=== PATIENT | female | born 1990 | race Caucasian/White ===

== ENCOUNTER → 2017-07-03 | Outpatient (CLI) | payer OTHER ==
[~2017-07-03] MED LIST: PRENTAB26 PO
[2017-07-03 16:15] LABS: HEMATOCRIT 38.3 % (37-47); HEMOGLOBIN 13.3 g/dL (12.0-16.0)
== END | disposition home or self-care (01) ==
LOC: C.LAB1850 14:19
PROVIDERS: ATTEND Obstetrics & Gynecology
DX: Z34.83 Encounter for supervision of other normal pregnancy, third trimester (principal)

== ENCOUNTER → 2017-07-19 | Outpatient (CLI) | payer OTHER | END | disposition home or self-care (01) | LOC: C.LAB1850 08:58 | PROVIDERS: ATTEND Obstetrics & Gynecology | DX: O28.1 Abnormal biochemical finding on antenatal screening of mother (principal); Z3A.00 Weeks of gestation of pregnancy not specified ==

== ENCOUNTER → 2017-09-07 | Outpatient (CLI) | payer OTHER | END | disposition home or self-care (01) | LOC: C.LABSPEC 17:14 | PROVIDERS: ATTEND Obstetrics & Gynecology | DX: Z34.83 Encounter for supervision of other normal pregnancy, third trimester (principal) ==

== ENCOUNTER 2017-09-30 13:21 | Inpatient (IN) | payer OTHER ==
[~2017-09-30] VITALS: Ht 162.6 cm; Wt 82.0 kg
[2017-09-30 14:55] VITALS: Ht 162.6 cm; Wt 82.0 kg
[2017-09-30] MEDS ORDERED: LACTATED RINGER'S 1000ML 1,000 ML IV SCH (16:33)
[2017-09-30] MEDS ORDERED: LACTATED RINGER'S 1000ML 1,000 ML IV PRN (16:33)
[2017-09-30 17:14] LABS: HEMATOCRIT 40.3 % (37-47); HEMOGLOBIN 13.8 g/dL (12.0-16.0); MEAN CELL VOLUME 86.5 fL (80-100); MEAN CORPUSCULAR HEMOGLOBIN 29.6 pg (25-34); MEAN CORPUSCULAR HGB CONC 34.2 g/dl (32-36); MEAN PLATELET VOLUME 11.1 fL (7.4-10.4); PLATELET COUNT 167 K/uL (130-400); RED CELL DISTRIBUTION WIDTH CV 13.8 % (11.5-14.5); RED CELL DISTRIBUTION WIDTH SD 42.6 fL (36.4-46.3); WHITE BLOOD COUNT 13.18 K/uL (4.8-10.8)
[2017-09-30] MEDS ORDERED: BUPIVACAINE 0.25% 30 ML VIAL ONE (17:36)
[2017-09-30] MEDS ORDERED: FENTANYL 2MCG/ML ROPIV 1.25MG/ML 100ML BAG EPI ONE (17:36)
[2017-09-30] MEDS ORDERED: EpHEDrine SULFATE INJ 50 MG/ML AMP ONE (17:36)
[2017-09-30] MEDS ORDERED: FENTANYL CITRATE INJ 50 MCG/1 ML 2 ML VIAL ONE (17:36)
[2017-09-30] MEDS ORDERED: OXYTOCIN 30 UNITS/500ML NSS IV ONE (18:49)
[2017-09-30] MEDS ORDERED: NALOXONE HCL INJ 1 MG in SODIUM CHLORIDE 0.9% 1000ML 1,000 ML IV PRN (19:13)
[2017-09-30] MEDS ORDERED: LACTATED RINGER'S 1000ML 500 ML IV PRN (19:13)
[2017-09-30] MEDS ORDERED: ONDANSETRON INJ 2 MG/ML 2 ML VIAL IV PRN (19:15)
[2017-09-30] MEDS ORDERED: NALBUPHINE HCL INJ 10 MG/ML AMP IV PRN (19:15)
[2017-09-30] MEDS ORDERED: FENTANYL 2MCG/ML ROPIV 1.25MG/ML 100ML BAG EPI PRN (19:15)
[2017-09-30] MEDS ORDERED: DiphenhydrAMINE HCL 50 MG/ML VIAL IV PRN (19:15)
[2017-09-30] MEDS ORDERED: EpHEDrine SULFATE INJ 50 MG/ML AMP IV PRN (19:15)
[2017-09-30] MEDS ORDERED: NALOXONE HCL INJ 0.4 MG/1 ML VIAL/CARP IV PRN (19:15)
[2017-09-30] MEDS ORDERED: BENZOCAINE 20% AER SPR 82.5 GM CAN EXT PRN (21:15)
[2017-09-30] MEDS ORDERED: SUPERCREAM 0.870 % 15GM JAR EXT PRN (21:15)
[2017-09-30] MEDS ORDERED: HYDROCORTISONE ACETATE 25 MG SUPP PR PRN (21:15)
[2017-09-30] MEDS ORDERED: ACETAMINOPHEN 325 MG TAB PO PRN (21:15)
[2017-09-30] MEDS ORDERED: LANOLIN OINT EXT PRN (21:15)
[2017-09-30] MEDS ORDERED: OXYCODONE/ACETAMINOPHEN 5-325 TAB PO PRN (21:15)
[2017-09-30] MEDS ORDERED: DIPHTHERIA/TETANUS/PERTUSSIS 0.5 ML SYR/VIAL IM. ONE (21:15)
[2017-09-30] MEDS ORDERED: OXYTOCIN 30 UNITS/500ML NSS IV PRN (21:15)
[2017-09-30] MEDS ORDERED: ACETAMINOPHEN/CODEINE 300/30MG TAB PO PRN ×2 (21:15)
--- NOTE | 2017-09-30 21:23 | DELIVERY SUMMARY ---
DATE OF OPERATION: 09/30/2017 VAGINAL DELIVERY NOTE Josey presented in active labor on 09/30/2017. This is her third baby. Group B step negative. Term , uncomplicated. She was 5 cm requested epidural. ARM was performed and then she rapidly progressed to fully dilation. She delivered a baby in right occiput anterior position, fluid was clear. However, there was a tight nuchal cord. This was clamped and cut after delivery of the head and mouth and nares suctioned. Gentle traction used to deliver the baby. No excessive force, live vigorous male infant. Cord gas was obtained. Cord blood obtained. Placenta removed with gentle traction. A small first degree tear repaired with 3-0 Vicryl. Estimated blood loss 100 mL. Sponge and instrument counts were correct. I attest to the content of the Intraoperative Record and any orders documented therein. Any exception s are noted below.
[2017-09-30 23:20] VITALS: BP 112/63; PULSE 88; TEMP 36.7; O2SAT 96
[2017-09-30] MEDS: IBUPROFEN 600 MG TAB PO PRN (23:57)
--- NOTE | 2017-10-01 00:07 | Anesthesia Procedure Note ---
Anesthesia Epidural Removal Nt Date & Time Oct 01, 2017 at 00:06 Vital Signs Pain Intensity: 2.0 Vital Signs Past 12 Hours Date Time Temp Pulse Resp B/P (MAP) Pulse Ox O2 Delivery O2 Flow Rate FiO2 09/30/17 23:20 Room Air 09/30/17 23:20 36.7 88 16 112/63 (79) 96 Room Air Notes Mental Status: alert / awake / arousable, participated in evaluation Nausea / Vomiting: adequately controlled Pain: adequately controlled Airway Patency, RR, SpO2: stable & adequate BP & HR: stable & adequate Hydration State: stable & adequate Neuraxial Anesthesia: was administered Anesthetic Complications: no major complications apparent, pt satisfied with anesthetic care Epidural: removed without complications, with tip intact
[2017-10-01 03:15] VITALS: BP 100/58; PULSE 77; TEMP 36.6; O2SAT 95
--- NOTE | 2017-10-01 06:34 | Progress Note ---
Subjective Oct 01, 2017. Subjective conversation w/ patient, physical exam, chart review, lab review Ambulation: ambulating normally Voiding: no voiding problems Passing Gas: Yes Diet Tolerance: Regular Diet Lochia: Small Feeding Type: Breast Feeding Review of Systems Constitutional: No fever, No chills Respiratory: No cough, No shortness of breath Cardiac: No chest pain, No palpitations Abdomen: No pain, No nausea, No vomiting Female : No dysuria Objective Vital Signs Date Time Temp Pulse Resp B/P (MAP) Pulse Ox O2 Delivery O2 Flow Rate FiO2 10/01/17 03:15 36.6 77 16 100/58 (72) 95 Room Air 09/30/17 23:20 Room Air 09/30/17 23:20 36.7 88 16 112/63 (79) 96 Room Air Physical Exam General Appearance: WELL-APPEARING, WD/WN, NO APPARENT DISTRESS Respiratory/Chest: lungs clear, no respiratory distress Cardiovascular: regular rate, rhythm, no murmur Abdomen: non tender, soft Fundus: Firm, Relation to Umbilicus (1cm above the u) Extremities: non-tender, normal inspection Laboratory Results Last 24 Hours Test 09/30/17 16:53 10/01/17 04:44 White Blood Count 13.18 K/uL Red Blood Count 4.66 M/uL Hemoglobin 13.8 g/dL Hematocrit 40.3 % Mean Corpuscular Volume 86.5 fL Mean Corpuscular Hemoglobin 29.6 pg Mean Corpuscular Hemoglobin Concent 34.2 g/dl RDW Standard Deviation 42.6 fL RDW Coefficient of Variation 13.8 % Platelet Count 167 K/uL Mean Platelet Volume 11.1 fL Assessment and Plan Post- Day#: 1 Continue Routine Care: 27 yo female, , GBS-/B+/RI, PPD1. Reviewed vitals, WNL. Hgb 13.8 on admission, pending this am. No signs or sx of anemia. Pt is doing well clinically. Plan; 1. Recovery from vaginal delivery; Cont. pp care--ambulate, support bf, control pain, monitor lochia Resident Physician Supervision Note: I was present with Dr. Ibrahim during the history and exam. I discussed the case with the resident and agree with the findings and plan as documented in the note. Any exceptions or clarifications are listed here: [None] Documented By: Micah Martin
--- NOTE | 2017-10-01 06:35 | Discharge Instructions ---
Discharge Instructions Date of Service Oct 01, 2017. Admission Reason for Admission: Check Labor Discharge Discharge Diagnosis / Problem: vaginal delivery Discharge Goals Goal(s): Routine recovery after delivery Medications Continue Dispensed Medications: supercream, dermaplast, tucks, lansinoh Activity Recommendations Activity Limitations: per Instructions/Follow-up section . Instructions / Follow-Up Instructions / Follow-Up ACTIVITY RECOMMENDATIONS: * Gradual return to full activity over the next 2-3 weeks. * No lifting - nothing heavier than baby over the next 2-3 weeks. * Do not engage in vigorous exercise, sexual activity or sports until cleared by your physician. * Do not drive or operate any motorized equipment until cleared by your physician. * You may shower/bathe daily. MEDICATIONS: For discomfort or pain, you may use Acetaminophen (Tylenol), Ibuprofen (Advil), or Naproxen (Aleve) following the package directions. For constipation you may use Colace following the package directions. BREAST CARE: If you are not breast feeding: * Wear a supportive bra 24 hours a day for one to two weeks. * Avoid stimulating your breasts and nipples as much as possible during the first few weeks after delivery. * When taking a shower, have the warm water hit your back, not breasts. * When your breasts feel full, apply ice packs. Usually three to four times a day helps ease the discomfort. * Take a mild pain medication (Tylenol / Motrin) when you are uncomfortable. If breast feeding: * Use breast milk to lubricate nipples. Lansinoh cream may be used for sore nipples. You do not need to remove cream prior to breast feeding. If using a different brand of cream, check the label for directions regarding removal of cream prior to nursing. * Wear a supportive bra. * If having problems with breasts or breast feeding, call a internal control consultant or your health care provider. EPISIOTOMY CARE: After delivery, if you have an episiotomy (stitches), the following steps will ease discomfort and aid healing. * For the first 24 hours after delivery, place ice packs next to your episiotomy to help reduce swelling. * After the first 24 hour-period, sitz baths, either portable or in the tub, are suggested. A shower with a shower arm sprayed over the episiotomy may be comforting. * Yaneth care should be done after each voiding and bowel movement. Squirt warm water from a plastic bottle over the perineum (region of the body between the anus and urinary opening) and pat dry. * Use Dermoplast to ease discomfort. Shake container. [place] directly over the episiotomy. Place a Tucks on a clean sanitary pad next to your episiotomy. SPECIAL CARE INSTRUCTIONS: When you are discharged from the hospital, it is important for you to follow the instructions listed below: * During the first week at home, you should be able to care for yourself and your baby. In addition, the usual light household activities are encouraged. * Limit your activities to the way you feel. Do not try to clean the house or move furniture. Be sensible. * If you actively engage in sports and have done so up until the time of your delivery, you may resume these activities as soon as you feel able. This may take up to one month or even longer. Use good judgment. * Continue to take your vitamins for at least six weeks after the of your baby. * Your diet need not be limited unless you were on a special diet before your delivery. Breast-feeding mothers need around 2500 calories per day and at least 64-80 ounces of fluid per day (8 to 10 glasses). * You should eat foods from the four major food groups. Crash diets or fad diets are to be avoided. Eating lean meats, fresh fruits and vegetables, low-fat dairy products, high fiber foods and a regular exercise program, will help you get back to your pre- weight without putting your health at risk. * Constipation is sometimes a problem after delivery. Take a mild laxative as needed. If breast feeding, Milk of Magnesia is acceptable to use. You may use a suppository or Fleets enema if no episiotomy. * A daily shower or tub bath is suggested. Be sure to thoroughly and gently dry the perineum. * A bloody vaginal discharge will usually continue until around four weeks post . A small amount of bleeding may continue for as long as six weeks. Vaginal discharge changes from the bright red bleeding after delivery to pink then brownish and finally yellowish-pink before becoming white and disappearing. * Bleeding may increase with activity. Your first period may come in 4-8 weeks. If you are breast feeding, your period may be delayed even longer. * [place] (sex) can begin whenever both you and your partner feel comfortable and do not have any form of genital infection. It is recommended that you wait at least six weeks for internal and external healing to occur. If you have questions, please talk to your health care practitioner. A condom should be used to prevent infection and . * Foreplay, gentle intercourse and lubrication is very important the first several times to prevent pain. A water-based lubricant such as K-Y jelly or Astroglide may be used. * If you have RH negative blood and your baby is RH positive, you will receive RHOGAM by injection prior to discharge. The nurse will give you a card to keep with you that has the date and place that you received RHOGAM after delivery. * During your care, you had a Rubella screen done to check for the presence of rubella antibodies in your blood. If your test was negative, you will receive a Rubella vaccine prior to discharge. This vaccine may cause a fever, soreness at the injection site and flu-like symptoms. If these symptoms persist, notify your health care practitioner. is not advised for one month after a Rubella vaccine. * Verbalizes understanding of car seat law as reviewed with patient nursing. * Car Seat hand-out given and reviewed with patient by nursing. * Shaken baby information reviewed with patient by nursing. Call you doctor if: * Heavy bleeding (saturating several pads an hour) or passing clots the size of your fist. * A fever >101 degrees F (38.3 degrees C) on two occasions four hours apart and /or chills. * Unusual pain in the pelvic or vaginal areas. * "Baby Blues" lasting longer than two weeks. If you have any questions or concerns, call your health care practitioner at . FOLLOW UP VISIT: * Please call the office at to schedule a 6 week examination. It is important you keep this appointment. It is important for you to make arrangements for either yearly or twice yearly check-ups thereafter. Current Hospital Diet Patient's current hospital diet: Regular OB Diet Discharge Diet Recommended Diet: Regular Diet, Regular OB Diet Pending Studies Studies pending at discharge: no Medical Emergencies . Who to Call and When: Medical Emergencies: If at any time you feel your situation is an emergency, please call 911 immediately. . Non-Emergent Contact Non-Emergency issues call your: Primary Care Provider, Associate Professor Of Counseling . . "Provider Documentation" section prepared by Jae Ibrahim. .
[2017-10-01] MEDS: IBUPROFEN 600 MG TAB PO PRN ×2 (07:25→11:36)
[2017-10-01 07:45] VITALS: BP 109/73; PULSE 68; TEMP 36.5; O2SAT 97
[2017-10-01 07:57] LABS: HEMATOCRIT 40.8 % (37-47); HEMOGLOBIN 14.2 g/dL (12.0-16.0)
[2017-10-01] MEDS: PRENATAL VITAMIN TAB PO SCH (08:31)
[2017-10-01] MEDS: DOCUSATE SODIUM 100 MG CAP PO SCH ×2 (08:31→19:57)
[2017-10-01 11:40] VITALS: BP 117/73; PULSE 62; TEMP 36.6; O2SAT 97
[2017-10-01 15:30] VITALS: BP 105/68; PULSE 93; TEMP 36.5; O2SAT 96
[2017-10-01 19:50] VITALS: BP 109/69; PULSE 77; TEMP 36.3; O2SAT 96
[2017-10-01] MEDS ORDERED: BISACODYL 5 MG TABEC PO SCH (20:00)
[2017-10-01 23:45] VITALS: BP 107/70; PULSE 72; TEMP 36.4; O2SAT 97
[2017-10-02] MEDS: IBUPROFEN 600 MG TAB PO PRN (03:33)
--- NOTE | 2017-10-02 06:52 | Progress Note ---
Subjective Oct 02, 2017. Subjective conversation w/ patient, physical exam, chart review, lab review Ambulation: ambulating normally Voiding: no voiding problems Passing Gas: Yes Diet Tolerance: Regular Diet Lochia: Small Feeding Type: Breast Feeding Pain: complains of hemorrhoids--making BM painful Review of Systems Constitutional: No fever, No chills Respiratory: No cough, No shortness of breath Cardiac: No chest pain, No palpitations Abdomen: No pain, No nausea, No vomiting Female : No dysuria Objective Vital Signs Date Time Temp Pulse Resp B/P (MAP) Pulse Ox O2 Delivery O2 Flow Rate FiO2 10/01/17 23:45 97 Room Air 10/01/17 23:45 36.4 72 18 107/70 (82) 97 Room Air 10/01/17 19:50 36.3 77 18 109/69 (82) 96 Room Air 10/01/17 15:30 96 Room Air 10/01/17 15:30 36.5 93 18 105/68 (80) 96 Room Air 10/01/17 11:40 36.6 62 16 117/73 (88) 97 Room Air 10/01/17 07:45 36.5 68 18 109/73 (85) 97 Room Air 10/01/17 07:45 97 Room Air Physical Exam General Appearance: WELL-APPEARING, WD/WN, NO APPARENT DISTRESS Respiratory/Chest: lungs clear, no respiratory distress Cardiovascular: regular rate, rhythm, no murmur Abdomen: non tender, soft Fundus: Firm, Relation to Umbilicus (1 cm below u) Extremities: non-tender, normal inspection Laboratory Results Last 24 Hours Test 10/01/17 07:39 10/02/17 06:32 Hemoglobin 14.2 g/dL Hematocrit 40.8 % Assessment and Plan Post- Day#: 2 Continue Routine Care: Resident Physician Supervision Note: I interviewed and examined the patient. Discussed with Dr. Coy Ibrahim and agree with findings and plan as documented in the note. Any exceptions or clarifications are listed here: [None] Documented By: Cherelle Palomino 27 yo female, , GBS-/B+/RI, PPD2. Reviewed vitals, WNL. Hgb 13.8 on admission, 14.2 on 10/01. No signs or sx of anemia. Pt is doing well clinically. Plan; 1. Recovery from vaginal delivery; Cont. pp care--ambulate, support bf, control pain, monitor lochia
[2017-10-02] MEDS ORDERED: BISACODYL 10 MG SUPP PR PRN (07:00)
[2017-10-02 07:03] LABS: HEMATOCRIT 37.5 % (37-47); HEMOGLOBIN 12.5 g/dL (12.0-16.0); MEAN CELL VOLUME 87.6 fL (80-100); MEAN CORPUSCULAR HEMOGLOBIN 29.2 pg (25-34); MEAN CORPUSCULAR HGB CONC 33.3 g/dl (32-36); MEAN PLATELET VOLUME 11.3 fL (7.4-10.4); PLATELET COUNT 159 K/uL (130-400); RED CELL DISTRIBUTION WIDTH CV 14.2 % (11.5-14.5); RED CELL DISTRIBUTION WIDTH SD 45.7 fL (36.4-46.3); WHITE BLOOD COUNT 10.23 K/uL (4.8-10.8)
[2017-10-02 08:00] VITALS: BP 109/62; PULSE 64; TEMP 36.8
[2017-10-02] MEDS: PRENATAL VITAMIN TAB PO SCH (08:11)
[2017-10-02] MEDS: DOCUSATE SODIUM 100 MG CAP PO SCH (08:11)
[2017-10-02 11:13] VITALS: BP_DIAS 62; PULSE 64; TEMP 36.8
== END 2017-10-02 11:40 | disposition home or self-care (01) | DRG 775 ==
LOC: C.OPB 13:21 → C.LD 13:21 → C.OPB 16:39 → C.OBG 23:13
PROVIDERS: ADMIT Obstetrics & Gynecology; ATTEND Obstetrics & Gynecology
PROC: 0HQ9XZZ Repair Perineum Skin, External Approach (ICD-10-PCS; principal; 2017-09-30)
PROC: 10E0XZZ Delivery of Products of Conception, External Approach (ICD-10-PCS; principal; 2017-09-30)
DX: O69.1XX0 Labor and delivery complicated by cord around neck, with compression, not applicable or unspecified (principal); O70.0 First degree perineal laceration during delivery; Z3A.40 40 weeks gestation of pregnancy; Z37.0 Single live birth

== ENCOUNTER 2020-04-26 21:43 | Inpatient (IN) ==
[2020-04-26] MEDS ORDERED: OXYTOCIN 30 UNITS/500 ML BAG IV PRN (22:16)
--- NOTE | 2020-04-26 22:24 | Labor Progress Brief Note ---
Date of Service April 26, 2020 Subjective Patient presented as a walk-in for painful contractions Q4min, did not speak with on-call MD prior to arrival. Was examined by RN before I was aware of her arrival. She reports no LOF, no VB and good FM. I reviewed her recent chart. Assessment & Plan (1) Normal labor and delivery: Multip with spontaneous onset of labor, GBS neg, Covid neg, changed from 1cm in office 04/16 to 4cm today per RN, requesting epidural and also requesting AROM once comfortable. Will admit and manage expectantly. Physical Exam Physical Exam: /-2 per Kristy COHN. FHT 150 mod johan +acc -dec [place] Q2-3 Results & Data ([facility]) Vital Signs (Past 12 Hours) Vital Signs Temp Pulse Resp BP 04/26/20 21:59 97.5 F L 20 04/26/20 21:53 93 H 135/80 Coding Level of Care Code None Diagnoses Normal labor and delivery O80
[2020-04-26 22:37] LABS: Hemoglobin 14.4 g/dL (12.0-16.0); Mean Corpuscular Hemoglobin 30.3 pg (25-34); Mean Corpuscular Volume 88.2 fL (80-100); Mean Platelet Volume 11.5 fL (7.4-10.4); Platelet Count 170 K/uL (130-400); RDW Coefficient of Variation 14.4 % (11.5-14.5); RDW Standard Deviation 46.5 fL (36.4-46.3); Red Blood Count 4.76 M/uL (4.2-5.4); White Blood Count 12.24 K/uL (4.8-10.8)
[2020-04-26] MEDS: LACTATED RINGER'S 1,000 ML IV PRN ×2 (22:40→23:28)
[2020-04-26] MEDS ORDERED: SODIUM CHLORIDE 0.9% INJ 10 ML VIAL ONE (22:44)
[2020-04-26] MEDS ORDERED: ePHEDrine sulfate 50 MG/ML AMP ONE (22:44)
[2020-04-26] MEDS ORDERED: BUPIVACAINE 0.25% 30 ML VIAL ONE (22:45)
[2020-04-26] MEDS ORDERED: fentaNYL citrate 100 MCG/2 ML VIAL ONE (22:45)
[2020-04-26] MEDS ORDERED: fentaNYL 2MCG/ML ROPIVACAINE 1.25MG/ML 100 ML BAG EPI ONE (22:46)
[2020-04-26 22:52] LABS: Mean Corpuscular Hgb Conc 34.3 g/dL (32-36)
--- NOTE | 2020-04-26 23:08 | Anesthesiology Consultation ---
Date of Service April 26, 2020 Assessment & Plan (1) Encounter for pre-operative examination: Chart Review Chart Review: Acceptable Risk for Labor Epidural Consults Requested none ASA ASA2 Proposed Anesthesia Anesthesia Type: Labor Epidural Risk / Benefits Reviewed With: PT / POA / Parent / Guardian, Accepts Plan and Informed Consent Obtained History Height/Weight Height: 5 ft 4 in Weight: 86.636 kg Allergies Allergy/AdvReac Type Severity Reaction Status Date / Time No Known Allergies Allergy Verified 04/16/20 13:59 Medications Home Medications Medication Instructions Recorded Confirmed Last Taken prenat.vits,sanna,[id number] 1 tab PO DAILY 10/30/19 04/26/20 04/26/20 08:00 Past Medical History Medical History Encounter for anatomic survey Hx of varicella Supervision of normal intrauterine in primigravida Vaginal delivery Exercise / Class Metabolic Activity II 4-5 Yardwork/Stairs/Walk up hill Past Family History Family History Other Hypertension Past Surgical History Surgical History [place] teeth removed Past Anesthesia History No Hx of Anesthesia Complications and No Family Hx of Anesthesia Complications History of PONV No Hx of PONV and No Hx of Motion Sickness Social History Smoking Status: Never smoker Hx Alcohol Use: No Hx Substance Use: No substance use type: does not use Physical Exam Vital Signs Last Vital Signs Temp 97.5 F L 04/26/20 21:59 Pulse 93 H 04/26/20 21:53 Resp 20 04/26/20 21:59 BP 135/80 04/26/20 21:53 ENMT Mouth: no dentition abnormality Thyromental Distance: > or= 3.5 Finger Breadths Mallampati Class: II Neck normal visual inspection Respiratory normal respiratory effort Auscultation: lungs clear to auscultation bilaterally Cardiovascular Rate/Rhythm: regular rate and regular rhythm Testing Laboratory Results 04/26/20 22:24
[2020-04-26] MEDS ORDERED: NALOXONE HCL 0.4 MG/1 ML VIAL/CARP IV PRN (23:32)
[2020-04-26] MEDS ORDERED: ePHEDrine sulfate 50 MG/ML AMP IV PRN (23:32)
[2020-04-26] MEDS ORDERED: diphenhydrAMINE 50 MG/ML VIAL IV PRN (23:32)
[2020-04-26] MEDS ORDERED: fentaNYL 2MCG/ML ROPIVACAINE 1.25MG/ML 100 ML BAG EPI PRN (23:32)
[2020-04-26] MEDS ORDERED: ONDANSETRON INJ 2 MG/ML 2 ML VIAL IV PRN (23:32)
[2020-04-26] MEDS ORDERED: NALOXONE HCL 1 MG in SODIUM CHLORIDE 0.9% 1000ML 1,000 ML IV PRN (23:32)
--- NOTE | 2020-04-27 05:03 | Delivery Summary ---
Vaginal Delivery Summary Date of Service April 27, 2020 Vaginal Delivery Summary DIAGNOSES: 1. [place] intrauterine at 40w gestation. 2. Spontaneous onset of labor. 3. Group B Streptococcus Neg. PROCEDURE: Spontaneous vaginal delivery without laceration. SURGEON: Ceci Perez MD. EMPLOYMENT COACH: None. ESTIMATED BLOOD LOSS: 200 mL. COMPLICATIONS: None. PLACENTA: Spontaneous and intact with a 3-vessel cord. DISPOSITION: Stable to labor and delivery. DESCRIPTION: The patient pushed well and brought the head to in DOA position. The 's head was allowed to deliver with contraction force and no further active pushing, with the perineum protected during this time. The shoulders delivered easily with a maternal pushing effort. There was no nuchal cord. The right shoulder was anterior. The shoulders and body delivered without any difficulty, and the infant was placed on the maternal abdomen. It was vigorous and moving all extremities, and making respiratory efforts. The cord was doubly clamped by the MD and then cut by the FOB. The placenta delivered spontaneously and was noted to be intact and with a 3VC. The cervix, vagina and perineum were examined and were found to be without defect requiring repair. The fundus was firm and lochia minimal immediately after delivery. [facility] Vaginal Delivery Charge Vaginal Delivery Codes: 14012 global code for the antepartum, delivery, and post-
[2020-04-27] MEDS ORDERED: DIPHTHERIA/TETANUS/PERTUSSIS 0.5 ML SYR/VIAL IM ONE (05:43)
[2020-04-27] MEDS ORDERED: BENZOCAINE 20% AER SPR 82.5 GM CAN EXT PRN (05:43)
[2020-04-27] MEDS ORDERED: SUPERCREAM 0.870% 15 GM JAR EXT PRN (05:43)
[2020-04-27] MEDS ORDERED: HYDROCORTISONE ACETATE 25 MG SUPP PR PRN (05:43)
[2020-04-27] MEDS ORDERED: oxyCODONE/ACETAMINOPHEN 5mg/325mg TAB PO PRN (05:43)
[2020-04-27] MEDS ORDERED: ACETAMINOPHEN 325 MG TAB PO PRN (05:43)
--- NOTE | 2020-04-27 07:08 | Anesthesiology Progress Note ---
Date of Service April 27, 2020 Anesthesia Post Procedure Vital Signs Vital Signs: Temp Pulse Resp BP Pulse Ox 04/27/20 07:00 71 96/52 L 04/27/20 06:45 64 105/54 L 04/27/20 06:30 74 18 100/52 L 04/27/20 06:15 64 108/55 L 04/27/20 06:00 68 18 118/50 L 04/27/20 05:45 74 18 104/54 L 04/27/20 05:30 18 109/63 04/27/20 05:15 74 18 109/56 L 04/27/20 05:00 36.2 C L 125 H 18 133/60 04/27/20 04:55 82 98 04/27/20 04:50 92 H 99 04/27/20 04:45 90 131/69 92 04/27/20 04:43 81 90 04/27/20 04:40 87 71 L 04/27/20 04:38 96 H 90 04/27/20 04:35 81 98 04/27/20 04:32 68 94 04/27/20 04:31 70 129/61 04/27/20 04:30 70 18 96 04/27/20 04:25 76 98 04/27/20 04:20 67 95 04/27/20 04:17 70 94 04/27/20 04:15 68 135/73 96 04/27/20 04:10 71 96 04/27/20 04:05 68 96 04/27/20 04:00 36.5 C 71 18 128/65 95 04/27/20 03:55 70 97 04/27/20 03:51 74 93 04/27/20 03:50 80 97 04/27/20 03:45 67 133/73 91 04/27/20 03:44 68 94 04/27/20 03:40 74 96 04/27/20 03:39 71 94 04/27/20 03:35 70 92 04/27/20 03:33 70 94 04/27/20 03:30 71 18 132/69 95 04/27/20 03:27 68 94 04/27/20 03:25 67 94 04/27/20 03:22 70 94 04/27/20 03:20 71 94 04/27/20 03:17 72 94 04/27/20 03:15 68 136/70 94 04/27/20 03:12 68 93 04/27/20 03:10 71 97 04/27/20 03:05 82 97 04/27/20 03:01 18 04/27/20 03:00 73 131/69 97 04/27/20 02:55 69 97 04/27/20 02:50 77 97 04/27/20 02:45 71 125/76 99 04/27/20 02:40 66 97 04/27/20 02:35 66 97 04/27/20 02:33 67 119/62 04/27/20 02:31 18 04/27/20 02:30 67 95 04/27/20 02:25 72 96 04/27/20 02:20 68 97 04/27/20 02:15 66 97 04/27/20 02:10 36.4 C L 77 18 98 04/27/20 02:05 96 H 89 L 04/27/20 02:04 81 92 04/27/20 02:01 18 04/27/20 02:00 67 128/74 96 04/27/20 01:58 72 94 04/27/20 01:55 78 97 04/27/20 01:50 71 97 04/27/20 01:46 65 107/56 L 04/27/20 01:45 64 98 04/27/20 01:40 71 97 04/27/20 01:35 70 96 04/27/20 01:31 18 04/27/20 01:30 69 113/65 97 04/27/20 01:25 68 97 04/27/20 01:20 75 90 04/27/20 01:15 67 109/52 L 91 04/27/20 01:14 70 93 04/27/20 01:10 76 95 04/27/20 01:06 67 91 04/27/20 01:05 69 94 04/27/20 01:01 75 18 123/58 L 87 L 04/27/20 01:00 36.5 C 74 99 04/27/20 00:55 73 94 04/27/20 00:50 68 94 04/27/20 00:49 74 94 04/27/20 00:45 73 101/62 93 04/27/20 00:43 72 94 04/27/20 00:40 82 93 11/17/20 00:37 78 93 04/27/20 00:35 71 94 04/27/20 00:32 71 94 04/27/20 00:31 18 04/27/20 00:30 77 96/48 L 94 04/27/20 00:26 72 94 04/27/20 00:25 70 93 04/27/20 00:20 83 92 04/27/20 00:18 77 94 04/27/20 00:15 72 121/62 94 04/27/20 00:11 72 94 04/27/20 00:10 79 94 04/27/20 00:05 74 94 04/27/20 00:01 71 18 120/62 04/27/20 00:00 77 92 04/26/20 23:59 71 94 04/26/20 23:55 75 18 96 04/26/20 23:50 72 18 95 04/26/20 23:48 77 94 04/26/20 23:45 78 18 95 04/26/20 23:44 71 125/65 04/26/20 23:42 71 127/58 L 04/26/20 23:40 78 18 122/64 97 04/26/20 23:38 76 129/65 04/26/20 23:36 75 127/61 04/26/20 23:35 84 18 97 04/26/20 23:34 85 123/61 04/26/20 23:32 80 120/64 04/26/20 23:30 77 18 119/58 L 96 04/26/20 23:28 80 120/57 L 04/26/20 23:26 75 121/63 04/26/20 23:25 37.0 C 84 18 98 04/26/20 23:24 90 116/74 04/26/20 23:22 75 122/73 04/26/20 23:20 70 98 04/26/20 23:15 77 99 04/26/20 23:10 86 99 04/26/20 23:05 90 97 04/26/20 21:59 36.4 C L 20 04/26/20 21:53 93 H 135/80 Transfer of Care Handoff Completed per policy Notes Mental Status: alert / awake / arousable and participated in evaluation Patient Amnestic to Procedure: Yes Nausea / Vomiting: adequately controlled Pain: adequately controlled Airway Patency, RR, SpO2: stable & adequate BP & HR: stable & adequate Hydration State: stable & adequate Anesthetic Complications: no major complications apparent and Pt Satisfied with anesthetic care
[2020-04-27] MEDS: PRENATAL VITAMIN 1 TAB PO SCH (08:02)
[2020-04-27] MEDS: DOCUSATE SODIUM 100 MG CAP PO SCH ×2 (08:02→19:41)
[2020-04-27] MEDS: IBUPROFEN 600 MG TAB PO PRN ×2 (14:43→19:41)
[2020-04-28] MEDS: IBUPROFEN 600 MG TAB PO PRN ×2 (03:23→08:36)
[2020-04-28 06:06] LABS: Hematocrit (blood only) 40.6 % (37-47); Hemoglobin 13.6 g/dL (12.0-16.0); Mean Corpuscular Hemoglobin 29.8 pg (25-34); Mean Corpuscular Hgb Conc 33.5 g/dL (32-36); Mean Platelet Volume 11.1 fL (7.4-10.4); Platelet Count 150 K/uL (130-400); RDW Coefficient of Variation 14.6 % (11.5-14.5); RDW Standard Deviation 47.2 fL (36.4-46.3); Red Blood Count 4.56 M/uL (4.2-5.4); White Blood Count 10.66 K/uL (4.8-10.8)
--- NOTE | 2020-04-28 07:21 | Obstetrical Progress Note ---
Date of Service April 28, 2020 Assessment & Plan (1) exam: doing well, ready to go home, f/u 6wks pp check. instructions reviewed. Day #:: 1 Subjective Ambulation: ambulating normally Voiding: no voiding problems Diet Tolerance:: regular diet Lochia:: Small Feeding Type:: breast feeding denies complaints. no pain issues. Physical Exam Constitutional WD/WN, vitals as above Respiratory normal respiratory effort, lungs clear to auscultation Cardiovascular Rate/Rhythm: regular rate and regular rhythm Gastrointestinal (Abdomen) Inspection/Auscultation: abdomen normal to inspection Percussion/Palpation: abdomen soft Fundus firm 2cm down Musculoskeletal nt calves Neurologic grossly normal Psychiatric A+Ox3, euthymic affect Results & Data ([facility]) Vital Signs (Past 12 Hours) Vital Signs Temp Pulse Resp BP Pulse Ox 04/28/20 03:15 98.1 F 62 16 107/58 L 95 04/27/20 23:20 98.2 F 68 16 106/66 97 04/27/20 19:30 98.2 F 76 16 106/65 96
[2020-04-28] MEDS: DOCUSATE SODIUM 100 MG CAP PO SCH (08:36)
[2020-04-28] MEDS: PRENATAL VITAMIN 1 TAB PO SCH (08:36)
== END 2020-04-28 14:10 | disposition home or self-care (01) | DRG 807 ==
LOC: OPB 21:43 → 4S1 21:44 → 4N 04-27 07:27